=== PATIENT | female | born 1955 | race Caucasian/White ===

== ENCOUNTER 2022-10-01 02:22 | Outpatient (RCR) | payer OTHER, SELFPAY ==
[2022-10-01] MEDS: DAPTOmycin 500 MG in Normal Saline 50 ML 100 MG IVPB (09:12)
[2022-10-01] MEDS: Normal Saline Flush 10 ML SYR IVP (09:13)
== END 2022-10-17 23:59 | disposition home or self-care (01) ==
LOC: INF 02:22
PROVIDERS: PCP Family Medicine; Visit Provider Internal Medicine
DX: T84.59XA Infection and inflammatory reaction due to other internal joint prosthesis, initial encounter (principal)
CPT/HCPCS: 96365; J0878